=== PATIENT | female | born 1990 | race Two or more races ===

== ENCOUNTER 2023-07-22 17:28 | Emergency (ER) | payer MEDICAID, OTHER ==
[~2023-07-22] VITALS: Ht 157.5 cm; Wt 65.8 kg
[2023-07-22 17:45] VITALS: BP 114/75; TEMP 98; O2SAT 97
[2023-07-22] MEDS ORDERED: FLUORESCEIN SODIUM OPHTH 1 EA STRIP ONE (18:00)
[2023-07-22] MEDS ORDERED: TETRAcaine 5 ML BOTTLE ONE (18:00)
== END 2023-07-22 18:37 | disposition home or self-care (01) ==
LOC: ER 17:45
DX: H57.12 Ocular pain, left eye (principal)